=== PATIENT | female | born 2000 | race Caucasian/White ===

== ENCOUNTER 2023-02-08 12:49 | Outpatient (CLI) | payer OTHER, SELFPAY ==
--- NOTE | ~2023-02-08 | US_ITS ---
EXAMINATION: US OB /maternal detail DATE: 02/08/2023 14:29 INDICATION: anatomic survey. TECHNIQUE: Real-time ultrasound of the pelvis was performed. COMPARISON: None. FINDINGS: There is a single living fetus in breech presentation. The placenta is posterior, 1.8 cm from the ce rvix. heart rate is 140 beats per minute (bpm). The cervical length is 2.9 cm on transvaginal i mages, which is normal. The amniotic fluid volume is subjectively normal. The following biometric data were obtained: Biparietal diameter (BPD): 4.5 cm; head circumference (HC): 17.0 cm; abdominal circumference (AC): 15 .7 cm; femur length (FL): 3.1 cm. These measurements are concordant. Estimated weight is 339 g +/- 51 g, which correlates with the 95th percentile when 07/04/23 is used as estimated date of delivery. As single measurements, these parameters are each equal to the following estimated gestational ages: BPD: 19 weeks 4 days. HC: 19 weeks 4 days. AC: 20 weeks 6 days. FL: 19 weeks 4 days. estimated gestational age based solely on measurements from this exam is 19 weeks 6 days +/- 1 weeks 3 days. The cerebral ventricles, cerebellum, cisterna magna, nuchal fold, and visualized portions of the spin e are normal. The heart is normal. The diaphragm, stomach, kidneys, and bladder are normal. There are two umbilical arteries to yield a 3-vessel cord. The cord insertion is normal. IMPRESSION: 1. Single living fetus in breech presentation. 2. Large for gestational age. Estimated weight is 339 g +/- 51 g, which correlates with the 95 th percentile when 07/04/23 is used as estimated date of delivery. 3. Normal anatomic survey. 4. Low lying placenta. Reviewed, dictated and finalized at location A. IMPRESSION: 1. Single living fetus in breech presentation. 2. Large for gestational age. Estimated weight is 339 g +/- 51 g, which correlates with the 95th percentile when 07/04/23 is used as estimated date of delivery. 3. Normal anatomic survey. 4. Low lying placenta.
== END 2023-02-08 12:50 | disposition home or self-care (01) ==
PROVIDERS: Visit Provider Obstetrics & Gynecology
DX: O36.62X0 Maternal care for excessive fetal growth, second trimester, not applicable or unspecified (principal); O44.42 Low lying placenta NOS or without hemorrhage, second trimester; Z3A.00 Weeks of gestation of pregnancy not specified
CPT/HCPCS: 76805

== ENCOUNTER 2023-04-04 10:44 | Outpatient (CLI) | payer OTHER, SELFPAY ==
--- NOTE | ~2023-04-04 | US_ITS ---
EXAMINATION: US OB follow up DATE: 04/04/2023 12:23 INDICATION: Superficial normal . Assess placental position. TECHNIQUE: Real-time ultrasound of the pelvis was performed. The interpreting radiologist was not pre sent for the study. COMPARISON: None. FINDINGS: There is a single living fetus in vertex presentation. The placenta is posterior with caudal margin 3.0 cm from the internal cervical os. heart rate is 148 beats per minute (bpm). The amniotic fl uid index is 16.2 cm, which is normal (5th%-95%: 9.5-22.6 cm at 27 weeks estimated gestational age). The following biometric data were obtained: BPD: 7.2 cm -> 28 weeks 6 days Head circumference: 26.6 cm -> 29 weeks 0 days Abdominal circumference: 23.6 cm -> 27 weeks 6 days Femur length: 4.9 cm -> 26 weeks 4 days Femur length to biparietal diameter ratio and femur length to head circumference ratio are both sligh tly below the normal range. Head circumference to abdominal circumference ratio: 1.13 (normal range 1.02-1.21). Estimated weight: 1096 g (+/-) 164 g or 2 lbs. 7 oz. (+/-) 6 oz. IMPRESSION: 1. Single living fetus in vertex presentation with heart rate of 148 bpm. 2. Normal amniotic fluid index of 16.2 cm. 3. Estimated weight is 62nd percentile by Hadlock criteria when 07/04/2023 is used as the estim ated date of delivery (RAFI). Please correlate with clinical information or earlier ultrasounds for mo st accurate RAFI. 4. Posterior placenta with caudal margin 3.0 cm from the internal cervical os. 5. Femur length to biparietal diameter ratio and femur length to head circumference ratio both slight ly below the normal range. Reviewed, dictated and finalized at location A. IMPRESSION: 1. Single living fetus in vertex presentation with heart rate of 148 bpm. 2. Normal amniotic fluid index of 16.2 cm. 3. Estimated weight is 62nd percentile by Hadlock criteria when 3 is used as the estimated date of delivery (RAFI). Please correlate with clinic al information or earlier ultrasounds for most accurate RAFI. 4. Posterior placenta with caudal margin 3.0 cm from the internal cervical os. 5. Femur length to biparietal diameter ratio and femur length to head circumfer ence ratio both slightly below the normal range.
== END 2023-04-04 10:45 | disposition home or self-care (01) ==
PROVIDERS: Visit Provider Obstetrics & Gynecology
DX: Z36.89 Encounter for other specified antenatal screening (principal)
CPT/HCPCS: 76816

== ENCOUNTER 2024-04-23 19:59 | Emergency (ER) | payer OTHER, SELFPAY ==
--- NOTE | 2024-04-23 20:05 | ED.SKABFB ---
HPI - Skin/Abscess/Foreign Bdy General Chief complaint: Animal Bite Stated complaint: Dog Bite/Right Ankle Time Seen by Provider: 04/23/24 20:05 Source: patient, RN notes reviewed and old records reviewed Mode of arrival: ambulatory Limitations: no limitations History of Present Illness HPI narrative: 24-year-old [facility] to [facility] complaint dog bite to right lateral ankle just prior to arrival. Patient states she getting over vehicle when neighbor's dog approached her and bit her ankle once. Patient states that neighbor told her the dog was up-to-date on all vaccinations. Patient reports being up-to-date on Tdap. Patient resting in exam room mild distress anxiety and discomfort. Patient denies numbness, tingling, weakness. Bleeding controlled upon arrival. Respirations even and nonlabored. Patient in no acute distress. Related Data Allergies Allergy/AdvReac Type Severity Reaction Status Date / Time No Known Allergies Allergy Verified 03/29/24 13:04 Review of Systems Review of Systems: All systems reviewed & are unremarkable except as noted in HPI and below Constitutional: Constitutional: Reports no additional constitutional complaints Eyes: Eyes: Reports no additional eye complaints ENT: Reports system reviewed and no additional complaints, except as documented Cardiovascular: Cardiovascular: Reports no additional cardiovascular complaints, Denies chest pain and Denies dyspnea Respiratory: Respiratory: Reports no additional respiratory complaints, Denies cough and Denies dyspnea Musculoskeletal: Musculoskeletal: Reports no additional musculoskeletal complaints Integumentary/Breasts: Skin/Breast: Reports wounds ( Dog bite right lateral ankle) Neurologic: Reports system reviewed and no additional complaints, except as documented Psychiatric: Psychiatric: Reports no additional psychiatric complaints [facility] Surgical History Surgical History Hx of colonoscopy [facility] 2020 Social History Social History Smoking status: Current every day smoker Tobacco type: e-cigarettes/vaping Alcohol intake: current Alcohol use details: Socially Do You Feel Safe in your Home?: Yes Lack of Transportation: No Lack of Food: Never True Current Housing: I Have Housing Concerned About Future Housing: No Difficulty Paying Gas/Electric Bills: No Difficulty Paying for Meds: No Currently Unemployed: No Education: Associate Degree Difficulty w/ Childcare or Family Care: No Comments At the time of my signature, I reviewed and agree with the nursing past medical, surgical, social, and family history. There is no relevant family history pertinent to the patient complaint. Exam Const: General: cooperative, healthy appearing, no acute distress, alert, in distress mild (pain and anxiety), anxious, uncomfortable and well nourished Nutritional Appearance: well nourished Orientation/consciousness: patient oriented x3 Limitations: no limitations HENMT: Head: normal to inspection Ears: external ears normal Face/Nose/Sinus: Normal external nose present, Normal nares present, normal facial exam, No erythema and No edema Face and sinus: normal facial exam, no erythema and no edema Mouth: Yes Normal oral and palatal mucosa present Eyes: General: appearance normal, both eyes and all related structures Neck: Neck: normal visual inspection, full ROM and no meningeal signs Chest: Chest palpation & inspection: normal inspection of the chest Resp: Effort & Inspection: normal respiratory effort and able to speak in complete sentences Cardio: Jugular venous distension: no JVD Rate: regular rate Rhythm: regular rhythm Back/Spine/Pelvis: Cervical Spine: cervical ROM normal Skin: General skin exam: normal color and wounds noted Wounds: wounds noted laceration right lateral a
[2024-04-23 20:08] VITALS: BP 114/83; PULSE 86; RESP 20; TEMP 37.1; O2SAT 100
== END 2024-04-23 20:35 | disposition home or self-care (01) ==
PROVIDERS: Emergency Provider Nurse Practitioner Family; PCP Hospitalist
DX: S91.011A Laceration without foreign body, right ankle, initial encounter (principal); W54.0XXA Bitten by dog, initial encounter; F17.290 Nicotine dependence, other tobacco product, uncomplicated
CPT/HCPCS: 99213; G0463